=== PATIENT | male | born 1955 | race Caucasian/White ===

== ENCOUNTER → 2022-10-06 | Day surgery (SDC) | payer MEDICARE ==
[2022-10-05 12:53] LABS: BASOPHILS % 0.2 % (0.0-1.0); EOSINOPHILS # (AUTO) 0.1 (0.0-0.4); EOSINOPHILS % 0.8 % (0.0-6.0); HEMATOCRIT 43.9 % (38.2-49.6); HEMOGLOBIN 15.6 g/dL (14.0-18.0); LYMPHOCYTES # (AUTO) 1.7 (1.0-3.2); LYMPHOCYTES % 28.9 % (18.0-39.1); MEAN CORPUSCULAR HEMOGLOBIN 31.6 pg (28-32); MEAN CORPUSCULAR HGB CONC 35.5 g/dL (31-35); MEAN CORPUSCULAR VOLUME 88.9 fL (81-99); MONOCYTES # (AUTO) 0.4 (0.2-0.8); MONOCYTES % 6.1 % (4.4-11.3); NEUTROPHILS # (AUTO) 3.8 (2.1-6.9); NEUTROPHILS % 63.8 % (38.7-80.0); PLATELET COUNT 172 x10e3/uL (140-360); RED BLOOD COUNT 4.94 x10e6/uL (4.3-5.7); RED CELL DISTRIBUTION WIDTH 12.1 % (11.7-14.4)
[2022-10-05 13:10] LABS: ANION GAP 13.3 mmol/L (8-16); CALCIUM 9.4 mg/dL (8.4-10.2); CREATININE, SERUM 1.02 mg/dL (0.72-1.25); POTASSIUM 4.3 mmol/L (3.5-5.1)
[~2022-10-06] MED LIST: ACETAMINOPHEN 1000 MG/100 ML 100 ML IV ONE; ASPIRIN81 MG PO; BUPIVACAINE 0.25% 30ML SDV ONE; BUPIVACAINE 0.5%/EPI 30 ML SDV INJ ONE; COQ-10100 MG; DEXAMETHASONE SOD PHOS INJ 4 MG/ML SDV ONE; EPHEDRINE SULFATE INJ 50 MG/ML VIAL ONE; FENTANYL CITRATE/PF 100MCG/2 ML INJ ONE; HYDROCODONE/APAP 7.5MG-325MG 1 EA TAB ONE; LACTATED RINGER'S 1,000 ML ONE; LEVOTHYROXINE50 MCG PO; LIDOCAINE 2%/ EPINEPHRINE 20ML MDV ONE; LIDOCAINE HCL 1% LOCAL INJ 20 ML VIAL ONE; LIDOCAINE HCL 2% LOCAL INJ 5 ML SDV VIAL INJ ONE; MAGNESIUM PO; MIDAZOLAM HCL 2 MG/2 ML VIAL ONE; OMEPRAZOLE40 MG PO; ONDANSETRON HCL INJ 2MG/ML 2ML 2 MG/ML VIAL ONE; POVIDONE IODINE 0.05% 0.05 % ML PO ONE; PROPOFOL IV EMULSION 10 MG/ML 20 ML VIAL ONE; SCOPOLAMINE 1 MG PATCH ONE; SEVOFLURANE INHAL SOLN 250 ML PEN BTL ONE; VITAMIN D3125 MCG/1; VITAMIN K2100 MCG PO
[2022-10-06 12:05] VITALS: BP 141/79; PULSE 74; RESP 17; O2SAT 97
== END | disposition home or self-care (01) ==
LOC: OR 06:58
PROVIDERS: ATTEND Surgery
DX: K40.90 Unilateral inguinal hernia, without obstruction or gangrene, not specified as recurrent (principal); D17.6 Benign lipomatous neoplasm of spermatic cord; I25.10 Atherosclerotic heart disease of native coronary artery without angina pectoris; I49.9 Cardiac arrhythmia, unspecified; E03.9 Hypothyroidism, unspecified; K21.9 Gastro-esophageal reflux disease without esophagitis; N20.0 Calculus of kidney; Z01.810 Encounter for preprocedural cardiovascular examination; Z01.812 Encounter for preprocedural laboratory examination; Z01.818 Encounter for other preprocedural examination; Z79.82 Long term (current) use of aspirin; Z79.899 Other long term (current) drug therapy; Z98.61 Coronary angioplasty status
CPT/HCPCS: 36415; 49505; 71046; 80048; 85025; 93005; J0131; J1100; J2001 ×2; J2250; J2405; J2704; J3010; J7121

== ENCOUNTER 2023-07-27 21:27 | Inpatient (IN) | payer MEDICARE ==
[~2023-07-27] VITALS: Ht 177.8 cm; Wt 83.9 kg
[~2023-07-27 21:27] MED LIST changes: -ACETAMINOPHEN 1000 MG/100 ML 100 ML IV ONE; -BUPIVACAINE 0.25% 30ML SDV ONE; -BUPIVACAINE 0.5%/EPI 30 ML SDV INJ ONE; -DEXAMETHASONE SOD PHOS INJ 4 MG/ML SDV ONE; -EPHEDRINE SULFATE INJ 50 MG/ML VIAL ONE; -FENTANYL CITRATE/PF 100MCG/2 ML INJ ONE; -HYDROCODONE/APAP 7.5MG-325MG 1 EA TAB ONE; -LACTATED RINGER'S 1,000 ML ONE; -LIDOCAINE 2%/ EPINEPHRINE 20ML MDV ONE; -LIDOCAINE HCL 1% LOCAL INJ 20 ML VIAL ONE; -LIDOCAINE HCL 2% LOCAL INJ 5 ML SDV VIAL INJ ONE; -MIDAZOLAM HCL 2 MG/2 ML VIAL ONE; -ONDANSETRON HCL INJ 2MG/ML 2ML 2 MG/ML VIAL ONE; -POVIDONE IODINE 0.05% 0.05 % ML PO ONE; -PROPOFOL IV EMULSION 10 MG/ML 20 ML VIAL ONE; -SCOPOLAMINE 1 MG PATCH ONE; -SEVOFLURANE INHAL SOLN 250 ML PEN BTL ONE
[2023-07-27] MEDS: ONDANSETRON HCL INJ 2MG/ML 2ML 2 MG/ML VIAL IV STA (22:43)
[2023-07-27] MEDS: SODIUM CHLORIDE 0.9% 1000ML 1,000 ML IV STA (22:43)
[2023-07-27 22:44] LABS: BASOPHILS % 0.1 % (0.0-1.0); HEMATOCRIT 43.7 % (38.2-49.6); HEMOGLOBIN 16.3 g/dL (14.0-18.0); LYMPHOCYTES # (AUTO) 0.5 (1.0-3.2); LYMPHOCYTES % 3.7 % (18.0-39.1); MEAN CORPUSCULAR HEMOGLOBIN 31.7 pg (28-32); MEAN CORPUSCULAR HGB CONC 37.3 g/dL (31-35); MONOCYTES # (AUTO) 0.3 (0.2-0.8); MONOCYTES % 2.5 % (4.4-11.3); NEUTROPHILS # (AUTO) 12.1 (2.1-6.9); NEUTROPHILS % 93.3 % (38.7-80.0); PLATELET COUNT 178 x10e3/uL (140-360); RED BLOOD COUNT 5.14 x10e6/uL (4.3-5.7); RED CELL DISTRIBUTION WIDTH 11.7 % (11.7-14.4); WHITE BLOOD COUNT 12.99 x10e3/uL (4.8-10.8)
[2023-07-27] MEDS: KETOROLAC TROMETHAMINE 30 MG/ML VIAL IV STA (22:44)
[2023-07-27 23:01] LABS: ALBUMIN 4.8 g/dL (3.5-5.0); ALBUMIN/GLOBULIN RATIO 1.7 (0.8-2.0); ANION GAP 20.9 mmol/L (8-16); CALCIUM 9.8 mg/dL (8.4-10.2); CREATININE, SERUM 1.33 mg/dL (0.72-1.25); POTASSIUM 3.9 mmol/L (3.5-5.1); TOTAL PROTEIN 7.7 g/dL (6.5-8.1)
[2023-07-28] VITALS (7 sets, daily range): BP systolic 104–120; BP diastolic 64–72; PULSE 70–93; RESP 18–20; TEMP 97.2–98.3; O2SAT 96–100
[2023-07-28] MEDS ORDERED: IOPAMIDOL 370 MG/ML 100 ML INFUS..BTL INJ ONE (00:45)
[2023-07-28] MEDS ORDERED: Morphine 4mg INJECTION 4 MG/ML INJ ONE (01:06)
[2023-07-28] MEDS: ONDANSETRON HCL INJ 2MG/ML 2ML 2 MG/ML VIAL IV STA (01:06)
[2023-07-28] MEDS: Morphine 4mg INJECTION 4 MG/ML INJ IV STA (01:06)
[2023-07-28] MEDS: SODIUM CHLORIDE 0.9% 1000ML 1,000 ML IV SCH (03:27)
[2023-07-28] MEDS ORDERED: EZETIMIBE-SIMV1 EAC1 PO (05:55)
[2023-07-28 06:51] LABS: BILIRUBIN,URINE NEGATIVE (NEGATIVE); CLARITY,URINE CLEAR (CLEAR); COLOR,URINE YELLOW (YELLOW); GLUCOSE, URINE NEGATIVE (NEGATIVE); KETONES,URINE 2+ (NEGATIVE); LEUKOCYTE ESTERASE ,URINE NEGATIVE (NEGATIVE); NITRITE,URINE NEGATIVE (NEGATIVE); PH,URINE 7 (5 - 7); PROTEIN,URINE DIPSTICK NEGATIVE (NEGATIVE); URINE UROBILINOGEN 0.2 mg/dL (0.2 - 1)
[2023-07-28 07:09] LABS: EPITHELIAL CELLS,URINE RARE /LPF; RBC,URINE >50 /HPF (0-5); WBC,URINE (MAN) 0-5 /HPF (0-5)
[2023-07-28] MEDS: ONDANSETRON HCL INJ 2MG/ML 2ML 2 MG/ML VIAL IV PRN (08:22)
[2023-07-28] MEDS: Morphine 4mg INJECTION 4 MG/ML INJ IV PRN (08:23)
[2023-07-28] MEDS ORDERED: FENTANYL CITRATE/PF 100MCG/2 ML INJ ONE (15:55)
[2023-07-28] MEDS ORDERED: MIDAZOLAM HCL 2 MG/2 ML VIAL ONE (15:55)
[2023-07-29] VITALS: BP 123/71; PULSE 116; RESP 17; TEMP 99; O2SAT 97
[2023-07-29 04:00] VITALS: BP 131/70; PULSE 97; RESP 18; TEMP 98.1; O2SAT 100
[2023-07-29 06:42] LABS: BASOPHILS % 0.1 % (0.0-1.0); EOSINOPHILS % 0.2 % (0.0-6.0); HEMATOCRIT 36.2 % (38.2-49.6); HEMOGLOBIN 13.2 g/dL (14.0-18.0); LYMPHOCYTES # (AUTO) 1.5 (1.0-3.2); LYMPHOCYTES % 12.7 % (18.0-39.1); MEAN CORPUSCULAR HEMOGLOBIN 32.4 pg (28-32); MEAN CORPUSCULAR HGB CONC 36.5 g/dL (31-35); MEAN CORPUSCULAR VOLUME 88.7 fL (81-99); MONOCYTES # (AUTO) 0.7 (0.2-0.8); MONOCYTES % 5.9 % (4.4-11.3); NEUTROPHILS # (AUTO) 9.8 (2.1-6.9); NEUTROPHILS % 80.8 % (38.7-80.0); PLATELET COUNT 135 x10e3/uL (140-360); RED BLOOD COUNT 4.08 x10e6/uL (4.3-5.7); RED CELL DISTRIBUTION WIDTH 12.1 % (11.7-14.4); WHITE BLOOD COUNT 12.14 x10e3/uL (4.8-10.8)
[2023-07-29 07:34] LABS: ALBUMIN 3.7 g/dL (3.5-5.0); ALBUMIN/GLOBULIN RATIO 1.7 (0.8-2.0); ANION GAP 12.7 mmol/L (8-16); BILIRUBIN,TOTAL 1.1 mg/dL (0.2-1.2); CALCIUM 8.5 mg/dL (8.4-10.2); CREATININE, SERUM 1.83 mg/dL (0.72-1.25); POTASSIUM 3.7 mmol/L (3.5-5.1); TOTAL PROTEIN 5.9 g/dL (6.5-8.1)
[2023-07-29] MEDS: LEVOTHYROXINE SODIUM 50 MCG TAB PO SCH (08:06)
[2023-07-29] MEDS: PANTOPRAZOLE SOD 40 MG TABEC PO SCH (08:07)
[2023-07-29 08:59] VITALS: BP 118/66; PULSE 88; RESP 19; TEMP 98.8; O2SAT 95
[2023-07-29 09:24] VITALS: BP 118/66; PULSE 88; RESP 19; TEMP 98.8; O2SAT 95
[2023-07-29 12:22] VITALS: BP 116/63; PULSE 87; RESP 19; TEMP 98.2; O2SAT 96
[2023-07-29] MEDS: KETOROLAC TROMETHAMINE 30 MG/ML VIAL IV PRN (18:02)
[2023-07-29] MEDS: DOCUSATE SODIUM 100 MG CAP PO SCH (18:02)
[2023-07-29 20:00] VITALS: BP 112/67; PULSE 81; RESP 20; TEMP 98.5; O2SAT 95
[2023-07-30] VITALS: BP 145/73; PULSE 74; RESP 22; TEMP 98.1; O2SAT 100
[2023-07-30 04:00] VITALS: BP 125/61; PULSE 80; RESP 17; TEMP 98.6; O2SAT 98
[2023-07-30 09:50] VITALS: BP 115/62; PULSE 88; RESP 18; TEMP 98.6; O2SAT 98
[2023-07-30] MEDS: BISACODYL 10 MG SUPP PR ONE (12:00)
[2023-07-30 12:08] VITALS: BP 123/80; PULSE 83; RESP 18; TEMP 97.9; O2SAT 100
[2023-07-30 16:30] VITALS: BP 126/69; PULSE 69; RESP 17; TEMP 98.6; O2SAT 96
[2023-07-30] MEDS: TAMSULOSIN HCL 0.4 MG CAP PO SCH (20:30)
[2023-07-30] MEDS: BISACODYL 5 MG TAB EC PO ONE (20:33)
[2023-07-30 21:00] VITALS: BP 126/69; PULSE 69; RESP 17; TEMP 98.6; O2SAT 96
[2023-07-31] VITALS: BP 116/64; PULSE 65; RESP 20; TEMP 98.5; O2SAT 100
[2023-07-31 04:00] VITALS: BP 121/57; PULSE 76; RESP 18; TEMP 98.3; O2SAT 97
[2023-07-31] MEDS ORDERED: IOPAMIDOL 610MG/1ML 300 MG/ML VIAL IV ONE (06:01)
[2023-07-31] MEDS ORDERED: FAMOTIDINE 20 MG/2 ML VIAL IV ONE (06:13)
[2023-07-31 06:28] LABS: BASOPHILS % 0.1 % (0.0-1.0); EOSINOPHILS % 0.4 % (0.0-6.0); HEMATOCRIT 36.5 % (38.2-49.6); HEMOGLOBIN 13.3 g/dL (14.0-18.0); LYMPHOCYTES # (AUTO) 1.2 (1.0-3.2); LYMPHOCYTES % 11.9 % (18.0-39.1); MEAN CORPUSCULAR HEMOGLOBIN 32.1 pg (28-32); MEAN CORPUSCULAR HGB CONC 36.4 g/dL (31-35); MEAN CORPUSCULAR VOLUME 88.2 fL (81-99); MONOCYTES # (AUTO) 0.7 (0.2-0.8); MONOCYTES % 6.9 % (4.4-11.3); NEUTROPHILS % 80.3 % (38.7-80.0); PLATELET COUNT 144 x10e3/uL (140-360); RED BLOOD COUNT 4.14 x10e6/uL (4.3-5.7); RED CELL DISTRIBUTION WIDTH 11.9 % (11.7-14.4); WHITE BLOOD COUNT 9.95 x10e3/uL (4.8-10.8)
[2023-07-31 06:50] LABS: ANION GAP 16.1 mmol/L (8-16); CALCIUM 8.2 mg/dL (8.4-10.2); CREATININE, SERUM 1.41 mg/dL (0.72-1.25)
[2023-07-31 06:51] LABS: POTASSIUM 3.1 mmol/L (3.5-5.1)
[2023-07-31 07:50] VITALS: BP 112/71; PULSE 78; RESP 20; TEMP 97.7; O2SAT 98
[2023-07-31 08:45] VITALS: BP 112/71; PULSE 78; RESP 20; TEMP 97.7; O2SAT 98
[2023-07-31] MEDS: MAGNESIUM OXIDE 400 MG TAB PO ONE (09:45)
[2023-07-31] MEDS ORDERED: ONDANSETRON ODT4 MG PO (11:46)
[2023-07-31] MEDS ORDERED: TYLENOL325 MG PO (11:46)
[2023-07-31] MEDS ORDERED: CEFUROXIME250 MG PO (11:46)
[2023-07-31] MEDS ORDERED: FLOMAX0.4 MG PO (11:46)
[2023-07-31] MEDS: POTASSIUM CHLORIDE 20 MEQ TAB CR PO ONE (11:52)
[2023-07-31 12:00] VITALS: BP 97/59; PULSE 53; RESP 18; TEMP 98.1; O2SAT 99
[2023-07-31] MEDS ORDERED: LIDOCAINE HCL 2% LOCAL INJ 5 ML SDV VIAL INJ ONE (13:25)
[2023-07-31] MEDS ORDERED: DEXAMETHASONE SOD PHOS INJ 4 MG/ML SDV ONE (13:25)
[2023-07-31] MEDS ORDERED: ONDANSETRON HCL INJ 2MG/ML 2ML 2 MG/ML VIAL ONE (13:25)
[2023-07-31] MEDS ORDERED: SEVOFLURANE INHAL SOLN 250 ML PEN BTL ONE (13:25)
[2023-07-31] MEDS ORDERED: KETOROLAC TROMETHAMINE 30 MG/ML VIAL ONE (13:25)
[2023-07-31] MEDS ORDERED: PROPOFOL IV EMULSION 10 MG/ML 20 ML VIAL ONE (13:25)
== END 2023-07-31 13:01 | disposition home or self-care (01) | DRG 660 ==
LOC: ER 21:35 → ERHOLD 07-28 02:28 → MED/SURG 07-28 05:35 → MED/SURG2 07-28 15:12
PROVIDERS: ADMIT Internal Medicine; ATTEND Internal Medicine
PROC: 0T7D8ZZ Dilation of Urethra, Via Natural or Artificial Opening Endoscopic (ICD-10-PCS; 2023-07-31)
PROC: BT161ZZ Fluoroscopy of Right Ureter using Low Osmolar Contrast (ICD-10-PCS; 2023-07-31)
PROC: BT171ZZ Fluoroscopy of Left Ureter using Low Osmolar Contrast (ICD-10-PCS; 2023-07-31)
PROC: 0T778DZ Dilation of Left Ureter with Intraluminal Device, Via Natural or Artificial Opening Endoscopic (ICD-10-PCS; principal; 2023-07-31 06:14)
DX: N13.6 Pyonephrosis (principal); D68.9 Coagulation defect, unspecified; E78.5 Hyperlipidemia, unspecified; E03.9 Hypothyroidism, unspecified; N39.0 Urinary tract infection, site not specified; N17.9 Acute kidney failure, unspecified; N23 Unspecified renal colic; R11.2 Nausea with vomiting, unspecified; Z11.52 Encounter for screening for COVID-19; Z79.890 Hormone replacement therapy; Z79.82 Long term (current) use of aspirin; N40.0 Benign prostatic hyperplasia without lower urinary tract symptoms; E27.9 Disorder of adrenal gland, unspecified
CPT/HCPCS: 36415; 74018; 74177; 74420; 80048; 80053; 81001; 83690; 83735; 85025; 99284; C1758; C1769; C2617; J0696; J1100; J1885; J2001; J2250; J2270; J2405; J7030; Q9967; U0002